=== PATIENT | male | born 1975 | race Caucasian/White ===

== ENCOUNTER 2018-07-16 08:07 | Observation (INO) ==
[2018-07-16] MEDS ORDERED: ALBUTEROL SULFATE/IPRATROPIUM 3 ML NEBU IH ONE (09:00)
--- NOTE | 2018-07-16 09:00 | ERNOTE ---
Date of Service: 07/16/18 Time Seen by Provider: 07/16/18 08:37 Stated Complaint: Patient says that he is here for coughing. The patient says that he is been having coughing pretty much consistently for 2 weeks. He was sick 2 weeks ago with a nonproductive cough. Multiple people around him had the same illness at the same time. He says there are periods when he could not bring anything up and felt like he could not catch his breath. The patient thought it was a virus and has been letting things go, but he says that he still has episodes of feeling short of breath and feels like he cannot even walk across the parking lot without getting out of breath. The patient denies any chest pain but says it feels like he has tightness across his chest. No fever. No sputum production until earlier this morning when he had a small amount of clear to light yellow colored sputum. The patient has a history of hypertension but denies any history of cardiac disease. He says other members of the family who had the same illness seem to have gotten better much quicker. He has been using [id number] cough medicines without any impact Presenting Symptoms:: cough, other Source: patient Exam Limitations: no limitations Immunizations: IMMUNIZATION HX History of Influenza Vaccine Yes Hx Pneumococcal Vaccination No Allergies/Adverse Reactions: Allergies No Known Allergies Allergy (Verified 07/16/18 08:32) Home Medications: HOME MEDICATIONS Acetaminophen [Tylenol] 650 mg PO Q6H PRN 07/16/18 [Last Taken Unknown] Ibuprofen 800 mg PO Q8H PRN 07/16/18 [Last Taken Unknown] Lisinopril/Hydrochlorothiazide [Lisinopril-Hctz 10-12.5 mg Tab] 1 ea PO DAILY 07/16/18 [Last Taken Unknown] guaiFENesin [Mucinex] 1,200 mg PO Q12H 07/16/18 [Last Taken Unknown] Review of Systems - Review of Systems Constitutional: Present: no symptoms reported EYE: Present: no symptoms reported ENT: Present: no symptoms reported Respiratory: Present: shortness of breath, cough Cardiology: Present: other - Chest tightness Gastrointestinal/Abdominal: Present: no symptoms reported Genitourinary: Present: no symptoms reported Musculoskeletal: Present: other - Aching in chest wall Skin: Present: no symptoms reported Neurological: Present: no symptoms reported Endocrine: Present: no symptoms reported Hematologic/Lymphatic: Present: no symptoms reported Psych: Present: no symptoms reported All Other Systems: All systems neg except as marked Medical History (Last Updated 07/16/18 @ 08:35 by Anna Rosas RN) HTN (hypertension) Surgical History: Surgical History (Last Updated 07/16/18 @ 08:35 by Anna Rosas RN) H/O knee surgery H/O oral surgery Family History: Family History (Last Updated 07/16/18 @ 08:35 by Anna Rosas RN) Father Colon cancer Mitral valve prolapse History of quadruple bypass Mother Renal failure Social History: Preferred Language Micronesian Smoking Status Current some day smoker Alcohol Use occasionally Drug Use none No Social History Section defined Physical Exam - Physical Exam General Appearance: Present: wd/wn, alert, no apparent distress Head Exam: Present: normal inspection, no evidence of injury Eye Exam: Normal inspection: bilateral, PERRL: bilateral, EOMI: bilateral Ears, Nose, Throat: Present: normal ENT inspection, normal pharynx Neck: Present: normal inspection, nontender Respiratory: Present: no respiratory distress, normal breath sounds, no accessory muscle use, chest nontender, lungs clear Cardiovascular/Chest: Present: no murmur, tachycardia - Tachycardic, irregularly irregular, other Gastrointestinal/Abdominal: Present: normal bowel sounds, nontender, soft Back Exam: Present: normal inspection, normal range of motion, no CVA tenderness Extremity Exam: Present: normal inspection, normal range of motion, no edema Neurological Exam: Present: alert, oriented, normal mood/affect, no motor/sensory deficits Skin Exam: Present: normal color, warm/dry Lymphatic Exam: Present: no adenopathy Progress - Date and Time Seen: Date and Time: 07/16/18 10:01 t - Results and Orders Patient's Lab Results:: I have reviewed the patient's lab results. - Vital Signs Patient's Vital Signs:: I have reviewed the patient's vital signs. Vital Signs: Vital Signs 07/16/18 08:07 Temperature 36.1 C Pulse Rate 90 Respiratory Rate 16 Blood Pressure 138/80 O2 Sat by Pulse Oximetry 94 - EKG EKG #1 EKG: atrial fibrillation, other - He will with rapid ventricular response, ventricular rate is 169, no ST elevation. Nonspecific T waves. EKG read: Interp. by me - X-Ray X-Ray #1 X-Ray: chest Interpretation: Interp. by me X-ray Comments: Pending cardiomegaly. No signs of infiltrate. - Progress/Reassessment Chief Complaint: Cough Plan - Plan Plan: Patient has A. fib with RVR initial rate of 169. No history of coronary disease. Does have risk factors. The patient has an elevated BNP and a troponin which is not less than 0.004. Although the troponin is not positive, it is certainly not negative. I suspect this is due to rate dependent ischemia. This needs to be watched especially as the heart rate comes down. Likewise with the elevated BNP, this is likely rate related congestive changes. I am speaking with the hospitalist doctor. The patient is on a Cardizem drip and is being titrated. Heart rate is now 128. He will be admitted to the hospital. I am going to load him with some aspirin. Departure Clinical Impression: Atrial fibrillation with RVR, CHF (congestive heart failure) - Departure Disposition: Still a patient Condition: Stable
[2018-07-16 09:12] LABS: Hematocrit 46.4 % (42.0-52.0); Hemoglobin 15.2 gm/dL (13.5-18.0); Mean Cell Volume 94.9 fl (78-100); Mean Corpuscular Hemoglobin 31.1 pg (27-31); Mean Corpuscular Hgb Conc 32.8 g/dl (32-36); Mean Platelet Volume 11.5 fl (8-11.3); Neutrophil # 5.4 K/mm3 (1.3-6.0); Neutrophil % 68.6 % (42-75.0); Platelet Count 212 K/mm3 (150-450); Red Blood Count 4.89 M/mm3 (4.7-6.0); Red Cell Distribution Width 12.6 % (11.5-14.0); White Blood Count 7.8 K/mm3 (4.0-10.5)
[2018-07-16] MEDS ORDERED: DILTIAZEM HCL 5 MG/ML VIAL IV ONE (09:27)
[2018-07-16 09:30] LABS: Albumin * 3.6 gm/dl (3.4-5.0); Anion Gap 13.8 mmol/L (6.8-13.8); BUN/Creatinine Ratio 10.7 (9.0-21.6); Bilirubin, Total 0.6 mg/dL (0.0-1.1); Ca. Corrected For Albumin 8.9 mg/dL (8.4-10.2); Calcium * 8.9 mg/dL (7.9-10.9); Carbon Dioxide 27.2 mmol/L (24-32.6); Total Protein 6.6 gm/dL (6.2-8.2); Troponin I 0.017 ng/mL (0.00-0.10)
[2018-07-16] MEDS ORDERED: ASPIRIN 81 MG TAB.CHEW PO ONE (10:03)
[2018-07-16] MEDS ORDERED: ENOXAPARIN SODIUM 30 MG/0.3 ML SYRG SC ONE (10:16)
[2018-07-16] MEDS: DILTIAZEM HCL 125 MG in DEXTROSE 5 % IN WATER 100 ML IV PRN ×2 (11:00)
[2018-07-16] MEDS ORDERED: NORMAL SALINE 1,000 ML IV PRN (11:03)
[2018-07-16] MEDS ORDERED: DIGOXIN 0.25 MG/ML AMPUL IV ONE (13:30)
[2018-07-16] MEDS ORDERED: ENOXAPARIN SODIUM 100 MG/ML SYRG SC SCH (14:30)
--- NOTE | 2018-07-16 14:30 | HP ---
Chief Complaint - Chief Complaint Date of Service: 07/16/18 Time of Service: 14:30 Chief Complaint: cough, congestion History of Present Illness: 43-year-old male with a history of hypertension presented to the ER for 2 weeks nonproductive cough as well as shortness of breath. States he thought he was sick with "the crud" that his family has gotten off and on over the last month. He endorses worsening shortness of breath with activity but denies any chest pain, rapid heart rate, diaphoresis, nausea/vomiting or swelling in his feet. He states his chest is a little sore from coughing though. He also denies any fever or chills. In the ER he was found to be in A. fib with RVR as well as having an elevated BNP at 3840. Negative cardiac enzymes in the ER. He has no cardiac disease history. He does admit to smoking off and on since he was young adult, currently smokes 1 pack a day. Other than the rapid heart rate, his vital signs been stable since arriving to the hospital. He was given a loading dose of diltiazem and admitted to the SCU on a Cardizem drip. Medical History (Last Updated 07/16/18 @ 08:35 by Anan Rosas RN) HTN (hypertension) Surgical History: Surgical History (Last Updated 07/16/18 @ 08:35 by Anna Rosas RN) H/O knee surgery H/O oral surgery Family History: Family History (Last Updated 07/16/18 @ 08:35 by Anna Rosas RN) Father Colon cancer Mitral valve prolapse History of quadruple bypass Mother Renal failure Social History: Patient Lives/Resources Home Utilized Occupation [employer] Preferred Language French Do you have any denominational or No cultural preference? Smoking Status Former smoker Have you smoked in the past 12 Yes months Do you dip or chew tobacco No Alcohol Use occasionally Drug Use none No Social History Section defined Review Of Systems (GEN) - Review of Systems Generalized/Overall Review: Present: Fatigue. Absent: Chills, Fever, Weight gain EENTM: Present: No Symptoms Reported Respiratory: Present: Cough, Shortness of Breath. Absent: Stridor, Wheezing Cardiac: Absent: Chest Pain, Edema, Palpitations, Syncope Abdominal: Absent: Nausea, Vomiting Genitourinary: Present: No Symptoms Reported Musculoskeletal: Present: Other - Chest wall soreness Neurological: Present: No Symptoms Reported Skin: Present: No Symptoms Reported Endocrine: Present: No Symptoms Reported Immunizations: IMMUNIZATION HX History of Influenza Vaccine Yes Hx Pneumococcal Vaccination No Allergies/Adverse Reactions: Allergies Allergy/AdvReac Type Severity Reaction Status Date / Time No Known Allergies Allergy Verified 07/16/18 08:32 Home Medications: HOME MEDICATIONS Acetaminophen [Tylenol] 650 mg PO Q6H PRN 07/16/18 [Last Taken Unknown] Ibuprofen 800 mg PO Q8H PRN 07/16/18 [Last Taken Unknown] Lisinopril/Hydrochlorothiazide [Lisinopril-Hctz 10-12.5 mg Tab] 1 ea PO DAILY 07/16/18 [Last Taken Unknown] guaiFENesin [Mucinex] 1,200 mg PO Q12H 07/16/18 [Last Taken Unknown] Exam - Exam Vital Signs: Vital Signs - Last Taken Temp 36.4 C 07/16/18 12:25 Pulse 148 H 07/16/18 14:21 Resp 20 07/16/18 12:25 BP 115/91 H 07/16/18 14:21 Pulse Ox 97 07/16/18 12:25 Constitutional: Present: Alert, Oriented x3, Cooperative, No distress ENT Exam: Present: hearing grossly normal, nasal congestion Neck: Present: non-tender, full range of motion, supple Back Exam: Present: normal inspection, no CVA tenderness Respiratory: Present: no accessory muscle use, crackles. Absent: respiratory distress Cardiovascular/Chest: Present: tachycardia, irregularly irregular. Absent: diastolic murmur, systolic murmur Abdomen: Present: Normal bowel sounds, soft, nontender /Rectal: Present: Exam deferred Extremity: Absent: lower extremity edema, leg pain, slow capillary refill Skin Exam: Present: normal color, warm/dry Appearance: Present: appropriate appearance, appropriate insight Eye contact: Present: cooperative, good eye contact Thoughts: Present: normal thought pattern, normal mood /affect Diagnostic Studies: Abnormal Lab Results 07/16/18 07/16/18 Range/Units 09:03 09:03 MCH 31.1 H (27-31) pg MPV 11.5 H (8-11.3) fl Lymphocytes % 19.7 L (20-51) % Monocytes % 9.8 H (0.0-9) % Random Glucose 121 H (70-110) mg/dL B-Natriuretic Peptide 3840 H (5-140) pg/mL Laboratory Results WBC 7.8 K/mm3 (4.0-10.5) 07/16/18 09:03 RBC 4.89 M/mm3 (4.7-6.0) 07/16/18 09:03 Hgb 15.2 gm/dL (13.5-18.0) 07/16/18 09:03 Hct 46.4 % (42.0-52.0) 07/16/18 09:03 MCV 94.9 fl (78-100) 07/16/18 09:03 MCH 31.1 pg (27-31) H 07/16/18 09:03 MCHC 32.8 g/dl (32-36) 07/16/18 09:03 RDW 12.6 % (11.5-14.0) 07/16/18 09:03 Plt Count 212 K/mm3 (150-450) 07/16/18 09:03 MPV 11.5 fl (8-11.3) H 07/16/18 09:03 Immature Gran % (Auto) 0.10 % (0.001-0.429) 07/16/18 09:03 Immature Gran # (Auto) 0.01 K/mm3 (0.000-0.0310) 07/16/18 09:03 Neutrophils % 68.6 % (42-75.0) 07/16/18 09:03 Lymphocytes % 19.7 % (20-51) L 07/16/18 09:03 Monocytes % 9.8 % (0.0-9) H 07/16/18 09:03 Eosinophils % 1.3 % (0.0-3.0) 07/16/18 09:03 Basophils % 0.5 % (0.0-1.0) 07/16/18 09:03 Nucleated RBC % 0.0 k/mm3 (0-1) 07/16/18 09:03 Neutrophils # 5.4 K/mm3 (1.3-6.0) 07/16/18 09:03 Lymphocytes # 1.54 k/mm3 (1.5-3.5) 07/16/18 09:03 Monocytes # 0.8 k/mm3 (0.0-1.0) 07/16/18 09:03 Eosinophils # 0.1 k/mm3 (0.0-0.7) 07/16/18 09:03 Absolute Basophils 0.0 k/mm3 (0.0-0.1) 07/16/18 09:03 Sodium 138 mmol/L (132-142) 07/16/18 09:03 Plasma Sodium 138 mmol/L (130-142) 07/16/18 09:03 Potassium 4.0 mmol/L (3.4-4.6) 07/16/18 09:03 Chloride 101 mmol/L (97-106) 07/16/18 09:03 Carbon Dioxide 27.2 mmol/L (24-32.6) 07/16/18 09:03 Anion Gap 13.8 mmol/L (6.8-13.8) 07/16/18 09:03 BUN 13 mg/dL (6-23) 07/16/18 09:03 Creatinine 1.21 mg/dL (0.4-1.4) 07/16/18 09:03 Est GFR (Non-Af Amer) 69 mL/min (60-130) 07/16/18 09:03 BUN/Creatinine Ratio 10.7 (9.0-21.6) 07/16/18 09:03 Random Glucose 121 mg/dL (70-110) H 07/16/18 09:03 Calcium 8.9 mg/dL (7.9-10.9) 07/16/18 09:03 Calcium Adj for Albumin 8.9 mg/dL (8.4-10.2) 07/16/18 09:03 Total Bilirubin 0.6 mg/dL (0.0-1.1) 07/16/18 09:03 AST 32 U/L (0-48) 07/16/18 09:03 ALT 61 U/L (19-67) 07/16/18 09:03 Alkaline Phosphatase 54 U/L (50-170) 07/16/18 09:03 Troponin I 0.017 ng/mL (0.00-0.10) 07/16/18 09:03 B-Natriuretic Peptide 3840 pg/mL (5-140) H 07/16/18 09:03 Total Protein 6.6 gm/dL (6.2-8.2) 07/16/18 09:03 Albumin 3.6 gm/dl (3.4-5.0) 07/16/18 09:03 Assessment/Plan - Narrative Narrative: 43-year-old male with new onset heart failure as well as A. fib with RVR: Admitted to the SCU 1. Congestive heart failurewe will order an thoracic echocardiogram. Patient currently on an ULISES inhibitor, will wait to start a beta-jorge luis unless his rate is unable to be controlled on the diltiazem drip. Once we get his rate better controlled and can monitor his blood pressure to make sure it remains stable, will give IV Lasix to help offload his vascular buildup as x-ray did show enlarged heart with congestion. 2 sets of cardiac enzymes have been negative and his vital signs are stable aside from elevated heart rate. He is not currently in any chest pain 2. New onset A. fib with RVRtrying to rate control patient with diltiazem drip. He currently is maxed out at 15 mg/h and so a second line agent is needed. Again would like to use a beta-jorge luis but patient unable to start this at this time due to his new onset heart failure. We will try a one-time dose of dig to see if this helps with his rate at all. Will consider starting metoprolol if needed, to be given as a 5 mg IV push. If he tolerates this well then we will consider starting him on oral metoprolol tartrate 25 mg twice daily. Continue his ULISES inhibitor. Patient will need to be put on anticoagulants, likely will need warfarin as he is uninsured, will likely start this tomorrow once his rate is better controlled. Patient currently has received Lovenox which she will get twice daily and will bridge him on this medication while waiting for his INR to be appropriate between 2 and 3. 3. Hypertensionpatient's blood pressure currently well controlled with medications being given. Will monitor while in the ICU, will restart home medications once we have better rate control. - Assessment/Plan (1) Atrial fibrillation with RVR Problem: Acute (2) CHF (congestive heart failure) Problem: Acute (3) Tobacco use Problem: Acute
[2018-07-16] MEDS ORDERED: METOPROLOL TARTRATE 1 MG/ML AMPUL IV ONE ×2 (15:17→16:32)
[2018-07-16] MEDS ORDERED: FUROSEMIDE 10 MG/ML VIAL IV ONE (19:07)
[2018-07-16] MEDS: METOPROLOL TARTRATE 25 MG TABLET PO SCH (19:30)
[2018-07-16] MEDS ORDERED: FUROSEMIDE 10 MG/ML VIAL ONE (20:18)
[2018-07-16] MEDS ORDERED: ENOXAPARIN SODIUM 80 MG, ENOXAPARIN SODIUM 30 MG SC SCH ×2 (21:00)
[2018-07-16] MEDS: SIMVASTATIN 20 MG TABLET PO SCH (21:51)
[2018-07-16] MEDS: ENOXAPARIN SODIUM 40 MG/0.4 ML SYRG SC SCH (22:45)
[2018-07-17] MEDS: DILTIAZEM HCL 125 MG in DEXTROSE 5 % IN WATER 100 ML IV PRN ×2 (03:49)
[2018-07-17] MEDS: ENOXAPARIN SODIUM 40 MG/0.4 ML SYRG SC SCH ×2 (08:20→21:20)
[2018-07-17] MEDS: METOPROLOL TARTRATE 25 MG TABLET PO SCH ×2 (08:21→21:19)
--- NOTE | 2018-07-17 09:07 | ECHO ---
This report is available in the EMR
[2018-07-17] MEDS ORDERED: FUROSEMIDE 10 MG/ML VIAL IV ONE (09:35)
[2018-07-17] MEDS ORDERED: LISINOPRIL 10 MG TABLET PO SCH (09:45)
[2018-07-17] MEDS ORDERED: HYDROCHLOROTHIAZIDE 12.5 MG CAPSULE PO SCH (09:45)
[2018-07-17] MEDS: DILTIAZEM HCL 60 MG TABLET PO SCH ×2 (09:53→17:15)
--- NOTE | 2018-07-17 10:11 | PN ---
Subjective - Date and Time Seen Date: 07/17/18 Time: 10:05 Subjective Narrative: Patient did well overnight. He has no chest pain, nausea/vomiting, diaphoresis, swelling in his legs. He cannot feel his arrhythmia. Currently his rate is in appropriate range and has been since starting the diltiazem drip appropriately last night. His vital signs been stable and he is done well. Objective - Review of Systems Generalized/Overall Review: Denies: Weakness, Chills, Fever Respiratory: Reports: Cough. Denies: Shortness of Breath Cardiac: Denies: Chest Pain, Edema, Palpitations Abdominal: Denies: Nausea, Vomiting, Abdominal Pain Genitourinary Symptoms: Reports: No Symptoms Reported Musculoskeletal Complaints: Reports: Other - Chest wall tenderness from cough Neurological: Denies: Headache, Anxiety, Depressed Skin: Reports: No Symptoms Reported - Vitals Vitals: Last Vital Signs Temp 36.2 C 07/17/18 08:18 Pulse 92 07/17/18 09:53 Resp 16 07/17/18 08:18 BP 104/41 07/17/18 09:53 Pulse Ox 97 07/17/18 08:18 - EKG/Xray Findings EKG: atrial fibrillation Interpretation: Interp. by me - Exam Constitutional: Present: Alert, Oriented x3, Cooperative Neck: Present: non-tender, supple Respiratory: Present: normal breath sounds, crackles - Improving, No wheezing Cardiovascular/Chest: Present: normal peripheral pulses. Absent: edema Abdomen: Present: Normal bowel sounds, soft, nontender Skin Exam: Present: normal color, warm/dry Appearance: Present: appropriate appearance, appropriate insight Eye contact: Present: cooperative, good eye contact Thoughts: Present: normal thought pattern, normal mood /affect Assessment/Plan Plan Narrative: 43-year-old male with new onset heart failure as well as A. fib with RVR: Admitted to the SCU, transferred to the [facility] floor this morning. 1. Congestive heart failureechocardiogram showed global hypokinesis with a 30% ejection fraction. Patient currently on an ULISES inhibitor and beta-jorge luis. Now that his rate is within an acceptable range and his blood pressures are stable, will start IV Lasix to help offload his vascular buildup. Cardiac enzymes have been negative and his vital signs are stable. He is not currently in any chest pain. Patient fluid restricted to 1800 cc/day, start on a low-salt diet, with strict I's and O's and daily weights. Overall patient feels pretty good. 2. New onset A. fib with RVRpatient now rate controlled on diltiazem drip. We will transition him to oral diltiazem and continue his beta-jorge luis. We will also continue his ULISES inhibitor. Will start patient on Coumadin 5 mg daily, will bridge with Lovenox. We will check his INR in the morning. If he is feeling well and is able to give himself Lovenox at home, possible discharge tomorrow with follow-up. The clinic to measure his INRs. We will also refer him to cardiology prior to discharge now that he is stable. 3. Hypertensionpatient's blood pressure currently well controlled with medications being given. Will monitor while on the floor, will restart home medications. - Problems/Diagnosis (1) Atrial fibrillation with RVR Problem: Acute (2) CHF (congestive heart failure) Problem: Acute (3) Tobacco use Problem: Acute
[2018-07-17 10:18] LABS: Prothrombin Time (Patient) 11.1 Seconds (9.1-10.7)
[2018-07-17 10:35] LABS: INR 1.13 INR (0.92-1.08)
[2018-07-17] MEDS ORDERED: WARFARIN SODIUM 5 MG TABLET PO SCH (17:00)
[2018-07-17] MEDS: SIMVASTATIN 20 MG TABLET PO SCH (21:20)
[2018-07-18] MEDS: DILTIAZEM HCL 60 MG TABLET PO SCH ×2 (01:55→08:50)
[2018-07-18 05:44] LABS: Prothrombin Time (Patient) 11.1 Seconds (9.1-10.7)
[2018-07-18 05:47] LABS: INR 1.13 INR (0.92-1.08)
[2018-07-18] MEDS: METOPROLOL TARTRATE 25 MG TABLET PO SCH (08:53)
[2018-07-18] MEDS: ENOXAPARIN SODIUM 40 MG/0.4 ML SYRG SC SCH (08:53)
--- NOTE | 2018-07-18 12:31 | DS ---
(1) Atrial fibrillation with RVR Problem: Acute (2) CHF (congestive heart failure) Problem: Acute (3) Tobacco use Problem: Chronic Description of Stay: Patient brought into the hospital for acute shortness of breath with activity, cough. Chest x-ray obtained showed moderate cardiomegaly as well as vascular congestion. EKG showed him to be in A. fib with RVR. New diagnosis is of congestive heart failure as well as A. fib with RVR while here. Patient initially taken to the SCU on a Cardizem drip as well as been started on Lopressor. Rate was controlled with these 2 medications patient was transferred out of the SCU to the floor for continued observation. Echocardiogram obtained showing him to have global hypokinesis as well as an EF of roughly 30%. Patient maintain a fairly normal rate that fluctuated from 80 to the low 100s. Patient was asymptomatic as far as the arrhythmia, he did not feel any palpitations while here. Patient started on Lovenox given twice daily which he will continue to do in the outpatient setting while he waits for his Coumadin level to reach a therapeutic point. We will have him follow-up in the clinic with me early next week to discuss how he is doing with the new medications, with administering the Lovenox, with his fluid restriction as well as change in diet. Patient will come in daily to the clinic for INR checks. Referral to cardiology is currently being made, try to make it work with them as they are ma pay only at this time. They will be discharged home with Lopressor, diltiazem, Lovenox, Coumadin, will switch his lisinopril/hydrochlorothiazide to just lisinopril, as well as start him on a low-dose cholesterol medication. Will wait to start Lasix as patient's blood pressures have been running low since starting the diltiazem and Lopressor. He did receive 2 doses of IV Lasix which took off roughly 4-5 pounds of fluid weight which significantly improved his shortness of breath/breathing. Patient's agrees to buy a blood pressure monitoring device at the pharmacy as he may need to hold his diltiazem at times. We also need to make sure he maintains a decent rate so will have close follow-up with the patient. Advised patient's to call in as needed for questions or concerns regarding blood pressure or heart rate. We will revisit dietary changes, fluid restrictions, medication changes, alcohol intake at his next appointment here in the next 3-5 days. Both patient and patient's are very pleasant during her stay here, very appreciative for the care they received, were very easy to work with. Currently working on application to help think the patient Edgar but this is a 2-4-week process, may be longer. So Coumadin will be continued until all that is worked out. Procedures Performed: none Results and Findings: Lab Pending Results 07/16/18 08:33: Troponin I Less than 0.017 07/16/18 09:03: WBC 7.8, RBC 4.89, Hgb 15.2, Hct 46.4, MCV 94.9, MCH 31.1 H, MCHC 32.8, RDW 12.6, Plt Count 212, MPV 11.5 H, Immature Gran % (Auto) 0.10, Immature Gran # (Auto) 0.01, Neutrophils % 68.6, Lymphocytes % 19.7 L, Monocytes % 9.8 H, Eosinophils % 1.3, Basophils % 0.5, Nucleated RBC % 0.0, Neutrophils # 5.4, Lymphocytes # 1.54, Monocytes # 0.8, Eosinophils # 0.1, Absolute Basophils 0.0 07/16/18 09:03: Sodium 138, Plasma Sodium 138, Potassium 4.0, Chloride 101, Carbon Dioxide 27.2, Anion Gap 13.8, BUN 13, Creatinine 1.21, Est GFR (Non-Af Amer) 69, BUN/Creatinine Ratio 10.7, Random Glucose 121 H, Calcium 8.9, Calcium Adj for Albumin 8.9, Total Bilirubin 0.6, AST 32, ALT 61, Alkaline Phosphatase 54, Troponin I 0.017, B-Natriuretic Peptide 3840 H, Total Protein 6.6, Albumin 3.6 07/16/18 14:35: Troponin I Less than 0.017 07/17/18 10:02: PT 11.1 H, INR (Anticoag Therapy) 1.13 H 07/18/18 05:30: PT 11.1 H, INR (Anticoag Therapy) 1.13 H Discharge Location: Home Disposition: Home self-care Condition: Stable Discharge Activity: Activity as tolerated Discharge Diet: Low fat/chol, Other - Fluid restriction 1800 cc of free water a day Referrals: Kalpesh Miller, [Staff Physician] - (Please have follow-up in the next 3-5 days.) Additional Patient Instructions (free text): Patient will need to come into the clinic daily for INR checks. The cost of the lab draw is $142 total each day. This will need to be paid when you are checked in for the lab draw. Dr Miller's office will call you with results and dosing for your Coumadin. Take your Lovenox injections once in the morning and once at night. This medication has been called into [facility]. All of your other medications have been sent into [facility] in [facility]. Monitor blood pressure daily, patient to sit down and rest for 5-10 minutes prior to taking the blood pressure. Patient initially will need to check heart rate 3-4 times daily, advised him to call the clinic with a heart rate greater than 120. Keep a log of your Blood pressure and heart rate. (You can usually buy at BP cuff at [facility], [employer], [employer], etc) Do not eat leafy green vegetables at this time due to interaction with Coumadin possibly. Keep a log of your daily weights. Please weigh first thing each morning and record your weight. Call MD office if you gain 4+ lbs from your base weight or notice increasing shortness of breath. Call the clinic with any questions or concerns that they have as there is a lot changes taken place at this time. Patient/ to bring in application for Xarelto at next appointment including recent tax information. Follow up with Dr Miller 07/23/18 at 09:45. You will need to pay $100 when you come to this appointment. Follow up with Cardiology at [facility] with Dr Cote on 07/26 at 10:30. They will require payment of $161 at this appointment. You will have to sign a waiver stating that the amount you paid is an estimate and there may be further charges depending on what is done during appointment. They will refer you to their patient financial services in case further payment is necessary/in the event you would need to set up a payment plan. Please fax DC orders, summary facesheet, H&P and testing results to [phone]. Prescriptions (Any new or edited meds): Diltiazem HCl [Cardizem] 60 mg PO Q8H #90 tab Enoxaparin Sodium [Lovenox] 40 mg SC Q12H 5 Days #10 disp.syrin Lisinopril 5 mg PO DAILY #30 tab Metoprolol Tartrate [Lopressor] 25 mg PO BID #60 tab Simvastatin [Zocor] 20 mg PO HS #30 tab Warfarin Sodium [Coumadin] 5 mg PO DAILY@1700 #10 tab Complete Home Medications List: Complete Home Medication List: Acetaminophen [Tylenol] 650 mg PO Q6H PRN 07/16/18 Diltiazem HCl [Cardizem] 60 mg PO Q8H #90 tab 07/18/18 Enoxaparin Sodium [Lovenox] 40 mg SC Q12H 5 Days #10 disp.syrin 07/18/18 Lisinopril 5 mg PO DAILY #30 tab 07/18/18 Metoprolol Tartrate [Lopressor] 25 mg PO BID #60 tab 07/18/18 Simvastatin [Zocor] 20 mg PO HS #30 tab 07/18/18 Warfarin Sodium [Coumadin] 5 mg PO DAILY@1700 #10 tab 07/18/18
[2018-07-18 15:06] VITALS: BP 116/71
== END 2018-07-18 15:35 | disposition home or self-care (01) ==
LOC: ER 08:07 → INTOOBSV 10:29 → SCU 10:29 → MS 07-17 14:31
PROVIDERS: ADMIT Family Medicine; ATTEND Family Medicine
DX: I48.2 Chronic atrial fibrillation; I50.9 Heart failure, unspecified; Z72.0 Tobacco use
CPT/HCPCS: 36415; 71010; 71045; 80053; 83519; 83880; 84484; 85025; 85610; 93005; 93306; 94640; 94664; 96361; 96372; 96374; 96375; 99285; G0378